=== PATIENT | male | born 1955 | race Caucasian/White ===

== ENCOUNTER 2016-09-05 14:26 | Emergency (ER) | payer OTHER ==
[~2016-09-05] VITALS: Ht 205.7 cm; Wt 87.0 kg
[2016-09-05 14:30] VITALS: BP 134/89; PULSE 106; RESP 17; TEMP 98.2; O2SAT 96
[2016-09-05] MEDS ORDERED: HYDR2.5%T RECTAL (15:06)
[2016-09-05] MEDS ORDERED: IBUP400T20 PO (15:06)
--- NOTE | 2016-09-05 15:06 | PD ---
HPI Chief Complaint: Skin Problem Time Seen by Provider: 14:41 Travel History International Travel<30 days: No Contact w/Intl Traveler<30days: No Traveled to known affect area: No History of Present Illness HPI 61yo M with no significant PMH presents to the ED with c/o a bump in his rectum today. States it is painful to sit on. He has been straining while on the toilet for a few days. Denies any fever, chest pain, sob, n/v, abdominal pain, rectal bleeding. Pt states he scratched the area 2 days ago and thought it may have been caused by that. PFSH Social History Alcohol Use: Yes Tobacco Use: Yes Substance Use: No Allergies-Medications (Allergen,Severity, Reaction): Coded Allergies: No Known Allergies (Unverified , 09/05/16) Reported Meds & Prescriptions Reported Meds & Active Scripts Active No Active Prescriptions or Reported Medications Review of Systems Except as stated in HPI: all other systems reviewed are Neg Physical Exam Narrative GENERAL: 61yo M not in distress. SKIN: Warm and dry. HEAD: Atraumatic. Normocephalic. CARDIOVASCULAR: Regular rate and rhythm. No murmur appreciated. RESPIRATORY: No accessory muscle use. Clear to auscultation. Breath sounds equal bilaterally. GASTROINTESTINAL: Abdomen soft, non-tender, nondistended. No rebound tenderness or guarding. RECTAL: +External hemorrhoid at 5 o'clock that is pink and soft. +TTP. No bleeding. MUSCULOSKELETAL: No obvious deformities. No clubbing. No cyanosis. No edema. NEUROLOGICAL: Awake and alert. No obvious cranial nerve deficits. Motor grossly within normal limits. Normal speech. PSYCHIATRIC: Appropriate mood and affect; insight and judgment normal. Data Data Last Documented VS Vital Signs Date Time Temp Pulse Resp B/P Pulse Ox O2 Delivery O2 Flow Rate FiO2 09/05/16 14:30 98.2 106 17 134/89 96 MDM Medical Decision Making Medical Screen Exam Complete: Yes Emergency Medical Condition: Yes Differential Diagnosis External hemorrhoid vs. prolapsed internal hemorrhoid Narrative Course 61yo M with external hemorrhoid after straining during bowel movement for a few days. Pt is well appearing. Will try conservative management of external hemorrhoid first and refer to general surgery clinic if symptoms do not improve. Diagnosis Primary Impression: External hemorrhoid Referrals: Lalit Nava MD 1 week Please follow up with general surgery if symptoms do not improve. Patient Instructions: General Instructions Departure Forms: Tests/Procedures Additional Instructions: Please increase your fiber intake, take sitz bath and follow up with general surgery if symptoms do not improve or worsen. Med/Other Pt SpecificInfo: Prescription(s) given Scripts Ibuprofen 400 Mg Egg454 Mg PO Q8H PRN (PAIN SCALE 1 TO 4) #20 TAB Ref 0 Prov:Mae Hameed DO 09/05/16 Hydrocortisone Rectal (Anusol-Hc Rectal)2.5% Cream1 Applic RECTAL TID 5 Days Ref 0 Prov:Mae Hameed DO 09/05/16 Mae Hameed DO Sep 05, 2016 15:06
== END 2016-09-05 15:18 | disposition home or self-care (01) ==
LOC: PHED 14:26
DX: K64.4 Residual hemorrhoidal skin tags (principal); Z72.0 Tobacco use
CPT/HCPCS: 99282